=== PATIENT | female | born 1990 | race Two or more races ===

== ENCOUNTER 2024-02-07 09:11 | Outpatient (RCR) | payer MEDICAID, SELFPAY ==
--- NOTE | 2024-02-07 10:00 | XR_ITS ---
Examination: RADAMES, hepatobiliary radioisotope scan. Date and time of exam: February 07, 2024 0937 hours INDICATIONS: Heartburn abdominal pain with eating months Technique: 5.8 mCi of 99M Hepatolite administered. Serial imaging then obtained from immediate through 60 minutes. Findings: Radioisotope activity within the liver is reasonably homogenous. 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
[2024-02-07 10:06] LABS: HCG Qualitative,Urine Negative
== END 2024-02-12 23:59 | disposition home or self-care (01) ==
LOC: SNUC 09:11
PROVIDERS: Referring Provider Nurse Practitioner; Visit Provider Nurse Practitioner
DX: K80.00 Calculus of gallbladder with acute cholecystitis without obstruction (principal); Z32.00 Encounter for pregnancy test, result unknown
CPT/HCPCS: 78227; 81025; A9537